=== PATIENT | male | born 1945 | race Caucasian/White ===

== ENCOUNTER 2025-04-17 06:19 | Day surgery (SDC) | payer MEDICARE, OTHER, SELFPAY ==
[2025-04-17 10:43] LABS: Glucose - Point of Care 141 mg/dl (70-99)
== END 2025-04-17 12:37 | disposition home or self-care (01) ==
LOC: GI 06:19
PROVIDERS: ATTENDING PHYSICIAN Internal Medicine Gastroenterology
DX: Z12.11 Encounter for screening for malignant neoplasm of colon (principal); K64.8 Other hemorrhoids; K63.5 Polyp of colon; Z86.0100 Personal history of colon polyps, unspecified; Z98.0 Intestinal bypass and anastomosis status
CPT/HCPCS: 45385; 82962; 88305